=== PATIENT | female | born 1990 | race Hispanic/Latino ===

== ENCOUNTER 2018-02-03 08:12 | Outpatient (RCR) | payer BC | END 2018-02-20 | LOC: PT 08:12 | PROVIDERS: ATTEND Neurological Surgery | DX: M51.17 Intervertebral disc disorders with radiculopathy, lumbosacral region (principal); M62.81 Muscle weakness (generalized) ==

== ENCOUNTER 2018-03-15 16:00 | Outpatient (RCR) | payer BC, OTHER | END 2018-03-23 | LOC: PT 16:00 | PROVIDERS: ATTEND Neurological Surgery | DX: M51.17 Intervertebral disc disorders with radiculopathy, lumbosacral region (principal); M62.81 Muscle weakness (generalized) | CPT/HCPCS: 97139 ==

== ENCOUNTER 2018-04-14 15:00 | Outpatient (RCR) | payer OTHER | END 2018-04-20 | LOC: PT 15:00 | PROVIDERS: ATTEND Neurological Surgery | DX: M51.17 Intervertebral disc disorders with radiculopathy, lumbosacral region (principal); M62.81 Muscle weakness (generalized) | CPT/HCPCS: 97139 ==

== ENCOUNTER 2018-09-15 13:00 | Outpatient (RCR) | payer OTHER | END 2018-09-20 | LOC: PT 13:00 | PROVIDERS: ATTEND Neurological Surgery | DX: M54.5 Low back pain (principal); M62.81 Muscle weakness (generalized); M51.17 Intervertebral disc disorders with radiculopathy, lumbosacral region ==

== ENCOUNTER 2018-09-21 13:08 | Outpatient (RCR) | payer OTHER | END 2018-10-21 | LOC: PT 13:08 | PROVIDERS: ATTEND Neurological Surgery | DX: M51.17 Intervertebral disc disorders with radiculopathy, lumbosacral region (principal); M96.1 Postlaminectomy syndrome, not elsewhere classified ==